=== PATIENT | female | born 1945 | race Caucasian/White ===

== ENCOUNTER 2016-06-09 14:08 | Outpatient (CLI) | payer MEDICARE | END 2016-06-09 14:17 | LOC: POD 14:08 | PROVIDERS: ATTEND Podiatrist | DX: B35.1 Tinea unguium (principal); M79.674 Pain in right toe(s); M79.675 Pain in left toe(s) | CPT/HCPCS: G0463 ==

== ENCOUNTER 2016-08-18 12:33 | Outpatient (CLI) | payer MEDICARE | END 2016-08-18 12:34 | LOC: POD 12:33 | PROVIDERS: ATTEND Podiatrist | DX: B35.1 Tinea unguium (principal); M79.674 Pain in right toe(s); M79.675 Pain in left toe(s) | CPT/HCPCS: 11721; G0463 ==

== ENCOUNTER 2016-11-03 13:06 | Outpatient (CLI) | payer MEDICARE | END 2016-11-03 13:07 | LOC: POD 13:06 | PROVIDERS: ATTEND Podiatrist | DX: B35.1 Tinea unguium (principal); M79.674 Pain in right toe(s); M79.675 Pain in left toe(s) | CPT/HCPCS: 11721; G0463 ==